=== PATIENT | female | born 2000 | race Caucasian/White ===

== ENCOUNTER 2020-07-29 20:17 | Emergency (ER) | payer OTHER ==
[~2020-07-29] VITALS: Ht 149.9 cm; Wt 43.1 kg
--- NOTE | 2020-07-29 20:22 | NUR ---
PT AAOX4. BIBSELF C/O L INDEX FINGER LACERATION WITH KNIFE. TDAP NOT UPDATED. PLACED IN BED 9 ON MONITOR AND PULSE OX.
[2020-07-29] MEDS ORDERED: BUPIVACAINE 0.5 % PF 150 MG/30 ML VIAL ONE (20:40)
[2020-07-29] MEDS ORDERED: TDAP [DIPH/PERTUSSIS/TET] 0.5 ML VIAL IM ONE ×2 (20:40→21:00)
[2020-07-29] MEDS ORDERED: LIDOCAINE 1% INJ 50 ML MDV IJ ONE (20:41)
[2020-07-29] MEDS ORDERED: BUPIVACAINE 0.5 % PF 150 MG/30 ML VIAL IJ ONE (21:00)
[2020-07-29] MEDS ORDERED: LIDOCAINE 2% 20 ML MDV TP ONE (21:00)
[2020-07-29 22:10] VITALS: BP 118/81
--- NOTE | 2020-07-29 22:10 | NUR ---
Patient discharged to home in stable condition. Written and verbal after care instructions given. Patient verbalizes understanding of instruction.
== END 2020-07-29 22:10 | disposition home or self-care (01) ==
LOC: ER 20:21
DX: S61.211A Laceration without foreign body of left index finger without damage to nail, initial encounter (principal); Z23 Encounter for immunization; W26.0XXA Contact with knife, initial encounter; Y93.89 Activity, other specified; Y92.89 Other specified places as the place of occurrence of the external cause; Y99.8 Other external cause status
CPT/HCPCS: 12001; 73140; 90471; 90715; 99283; A6403; J3490 ×2

== ENCOUNTER 2020-07-31 18:38 | Emergency (ER) | payer OTHER ==
[~2020-07-31] VITALS: Ht 149.9 cm; Wt 43.1 kg
[2020-07-31 19:20] VITALS: BP 112/77
== END 2020-07-31 19:50 | disposition home or self-care (01) ==
LOC: ER 18:40
DX: S61.211D Laceration without foreign body of left index finger without damage to nail, subsequent encounter (principal); X58.XXXD Exposure to other specified factors, subsequent encounter

== ENCOUNTER 2020-08-07 19:26 | Emergency (ER) | payer OTHER ==
[~2020-08-07] VITALS: Ht 149.9 cm; Wt 43.1 kg
[2020-08-07 19:30] VITALS: BP 106/68
== END 2020-08-07 20:04 | disposition home or self-care (01) ==
LOC: ER 19:36
DX: S61.211D Laceration without foreign body of left index finger without damage to nail, subsequent encounter (principal); X58.XXXD Exposure to other specified factors, subsequent encounter